=== PATIENT | male | born 2000 | race African-American/Black ===

== ENCOUNTER 2025-08-31 13:29 | Emergency (ER) | payer SELFPAY ==
[~2025-08-31] VITALS: Ht 177.8 cm; Wt 113.0 kg
[2025-08-31 13:39] VITALS: O2SAT 100
[2025-08-31 14:32] LABS: BASOPHILS % 0.8 % (0.0-2.0); EOSINOPHILS % 2.8 % (0.0-5.0); HEMATOCRIT. 46.0 % (42.0-52.0); HEMOGLOBIN. 15.3 g/dL (14.0-18.0); LYMPHOCYTES % 27.0 % (20.0-50.0); MEAN PLATELET VOLUME 7.5 fl (7.4-10.4); MONOCYTES % 9.4 % (2.0-8.0); NEUTROPHILS % 60.0 % (40.0-76.0); PLATELET 238 x1000/uL (130-400); RED BLOOD CELL COUNT 5.41 mill/uL (4.7-6.1); RED CELL DISTRIBUTION WIDTH 14.1 % (11.6-14.6)
[2025-08-31] MEDS: LEVETIRACETAM 1000MG PREMIX 100 ML IV SCH (14:35)
[2025-08-31 14:47] LABS: CREATININE 1.1 mg/dL (0.6-1.3); ETHANOL BLOOD < 10 mg/dL (<10); UREA NITROGEN BLOOD 7 mg/dL (9-23)
[2025-08-31] MEDS: KETOROLAC 30MG/ML VIAL IV SCH (16:40)
[2025-08-31 16:53] VITALS: BP 128/81; PULSE 75; RESP 12; O2SAT 100
== END 2025-08-31 16:54 | disposition home or self-care (01) ==
LOC: ER 13:29
DX: G40.909 Epilepsy, unspecified, not intractable, without status epilepticus (principal)
CPT/HCPCS: 80048; 80320; 85025; 36415; 93005; 96365; 96375; 99285; J1953; J1885; A4606; G0480